=== PATIENT | female | born 1965 | race African-American/Black ===

== ENCOUNTER 2021-12-05 13:15 | Emergency (ER) | payer OTHER ==
[~2021-12-05] VITALS: Ht 172.7 cm; Wt 157.0 kg
[2021-12-05 13:17] VITALS: BP 180/113
[2021-12-05] MEDS ORDERED: SODIUM CHLORIDE 0.9% 1,000 ML IV ONE (13:30)
[2021-12-05 16:03] LABS: BASOPHILS % 0.4 % (0.0-2.0); EOSINOPHILS % 1.3 % (0.0-5.0); HEMATOCRIT. 37.4 % (36.0-48.0); HEMOGLOBIN. 11.8 g/dL (12.0-16.0); LYMPHOCYTES % 36.1 % (20.0-50.0); MEAN CORPUSCULAR HEMOGLOBIN 25.6 pg (28.0-32.0); MEAN CORPUSCULAR VOLUME 81.1 fL (81.0-99.0); MEAN PLATELET VOLUME 8.7 fl (7.4-10.4); MONOCYTES % 8.3 % (2.0-8.0); NEUTROPHILS % 53.9 % (40.0-76.0); PLATELET 199 x1000/uL (130-400); RED BLOOD CELL COUNT 4.62 mill/uL (4.2-5.4); RED CELL DISTRIBUTION WIDTH 15.8 % (11.6-14.6)
[2021-12-05 16:09] LABS: CHLORIDE 109 mEq/L (98-107)
[2021-12-05 16:18] LABS: CREATINE KINASE 102 IU/L (26-192)
== END 2021-12-05 21:54 | disposition home or self-care (01) ==
LOC: ER 13:22
DX: G62.9 Polyneuropathy, unspecified (principal); I10 Essential (primary) hypertension; W18.30XA Fall on same level, unspecified, initial encounter; Y93.89 Activity, other specified; Y92.89 Other specified places as the place of occurrence of the external cause; Y99.8 Other external cause status
CPT/HCPCS: 36415; 74176; 80053; 82550; 85025; 96360; 96361; 99284; J7030

== ENCOUNTER 2024-09-12 13:57 | Emergency (ER) | payer MEDICAID, OTHER ==
[~2024-09-12] VITALS: Ht 172.7 cm; Wt 136.0 kg
[2024-09-12 13:59] VITALS: O2SAT 98
[2024-09-12] MEDS: ACETAMINOPHEN 325MG TABLET PO ONE (14:51)
[2024-09-12 14:58] LABS: BASOPHILS % 0.5 % (0.0-2.0); EOSINOPHILS % 0.9 % (0.0-5.0); HEMATOCRIT. 38.6 % (36.0-48.0); LYMPHOCYTES % 43.9 % (20.0-50.0); MEAN CORPUSCULAR HEMOGLOBIN 25.3 pg (28.0-32.0); MEAN CORPUSCULAR HGB CONC 31.2 g/dL (31.0-37.0); MEAN CORPUSCULAR VOLUME 81.3 fL (81.0-99.0); MEAN PLATELET VOLUME 8.8 fl (7.4-10.4); MONOCYTES % 0.1 % (2.0-8.0); NEUTROPHILS % 54.6 % (40.0-76.0); PLATELET 255 x1000/uL (130-400); RED BLOOD CELL COUNT 4.75 mill/uL (4.2-5.4); RED CELL DISTRIBUTION WIDTH 16.9 % (11.6-14.6); WHITE BLOOD COUNT 4.9 x1000/uL (4.5-11.0)
[2024-09-12 15:00] LABS: CLARITY URINE CLOUDY (CLEAR); COLOR URINE YELLOW (YELLOW); GLUCOSE URINE NEGATIVE (NEGATIVE); KETONES URINE NEGATIVE (NEGATIVE); LEUKOCYTE ESTERASE URINE TRACE (NEGATIVE); NITRITE URINE NEGATIVE (NEGATIVE); OCCULT BLOOD URINE NEGATIVE (NEGATIVE); PH URINE 8.5 (4.5-8.0); PROTEIN URINE NEGATIVE (NEGATIVE); SPECIFIC GRAVITY URINE 1.012 (1.005-1.030)
[2024-09-12 15:01] LABS: CARBON DIOXIDE 27 mEq/L (21-32); CHLORIDE 108 mEq/L (98-107); POTASSIUM 4.9 mEq/L (3.5-5.1); SODIUM 140 mEq/L (136-145)
[2024-09-12 15:02] LABS: CALCIUM 9.4 mg/dL (8.7-10.4)
[2024-09-12 15:06] LABS: CREATININE 0.5 mg/dL (0.6-1.0); GLUCOSE 93 mg/dL (70-105)
[2024-09-12 15:07] LABS: UREA NITROGEN BLOOD < 5 mg/dL (9-23)
[2024-09-12 15:08] LABS: ALANINE AMINOTRANSFERASE 9 IU/L (10-49); ALBUMIN 4.1 g/dL (3.2-4.8); ASPARTATE AMINOTRANSFERASE 19 IU/L (<34)
[2024-09-12 15:09] LABS: BILIRUBIN DIRECT 0.1 mg/dL (<=3.0); BILIRUBIN TOTAL 0.5 mg/dL (0.1-1.0); PROTEIN TOTAL 6.9 g/dL (6.0-8.3)
[2024-09-12 15:17] LABS: SQUAMOUS EPITHELIAL CELL URINE 2+ /lpf (RARE/1+)
[2024-09-12 15:18] LABS: BACTERIA URINE 1+
[2024-09-12 15:20] LABS: RBC URINE NONE SEEN /hpf (0-2); WBC URINE 0-2 /hpf (0-2)
[2024-09-12 15:52] LABS: INR 1.1; PROTHROMBIN TIME 11.3 sec (9.6-11.0)
[2024-09-12] MEDS: KETOROLAC 15MG/ML VIAL IV ONE (16:38)
[2024-09-12] MEDS ORDERED: METO5TAB86 MT (17:25)
[2024-09-12] MEDS ORDERED: NAPR-1176 MT (17:25)
[2024-09-12] MEDS ORDERED: LIDO700A15 TP (17:25)
[2024-09-12 18:44] VITALS: BP 169/91; PULSE 69; RESP 12; TEMP 36.7; O2SAT 98
[2024-09-12] MEDS ORDERED: IOHEXOL-300 100 ML BOTTLE ONE (23:09)
== END 2024-09-12 18:45 | disposition home or self-care (01) ==
LOC: ER 14:38 → EDBEDREQ 14:40 → ER 18:45
DX: R10.84 Generalized abdominal pain (principal); M54.9 Dorsalgia, unspecified; I10 Essential (primary) hypertension; Z79.1 Long term (current) use of non-steroidal anti-inflammatories (NSAID)
CPT/HCPCS: 99285; 74177; 96374; 80076; 80048; 81003; 83690; 85025; 85610; 36415; J1885; Q9967

== ENCOUNTER 2024-11-17 15:20 | Emergency (ER) | payer MEDICARE, MEDICAID ==
[~2024-11-17] VITALS: Ht 167.6 cm; Wt 127.0 kg
[~2024-11-17 15:20] MED LIST: LIDO-53 TP; METO5TAB86 MT; NAPR-1176 MT
[2024-11-17 15:40] VITALS: O2SAT 100
[2024-11-17] MEDS ORDERED: IBUP-2029 MT (19:23)
[2024-11-17] MEDS: KETOROLAC 30MG/ML VIAL IM ONE (20:19)
[2024-11-17 20:24] VITALS: BP 159/99; PULSE 83; RESP 17; TEMP 36.9; O2SAT 100
== END 2024-11-17 20:23 | disposition home or self-care (01) ==
LOC: ER 15:20
DX: M25.561 Pain in right knee (principal); I10 Essential (primary) hypertension; Z79.899 Other long term (current) drug therapy; Z79.1 Long term (current) use of non-steroidal anti-inflammatories (NSAID)
CPT/HCPCS: 99284; 73560; 73590; 96372; L1830; J1885